=== PATIENT | female | born 1955 | race Caucasian/White ===

== ENCOUNTER → 2020-06-04 | Outpatient (CLI) | payer MEDICARE, OTHER ==
--- NOTE | 2020-06-04 17:17 | KCIC ---
LUMBAR SPINE WO CONTRAST Date: 06/04/2020 2:45 PM Indication: LUMBAR RADICULOPATHY. Progressing lower back pain into BLE, R>L. Comparison: None. Technique: Multi-planar multi-weighted magnetic resonance imaging of the lumbar spine was performed without intravenous contrast using the standard lumbar spine protocol. FINDINGS: Transitional anatomy at the lumbosacral junction with the inferior most squared vertebral body designated a partially sacralized L5 vertebra with left pseudoarthrosis. Trace retrolisthesis at L1-2 and L2-3. 11 mm anterolisthesis at L4-5. No acute fracture. Moderate multilevel degenerative disc desiccation and disc height loss. Degenerative endplate edema at L4-5. The conus terminates at a normal level. No abnormal signal is seen within the visualized distal spinal cord. No clumping of intrathecal nerve roots. Right psoas atrophy. T10-11: Disc bulge. Mild facet arthropathy. Ligamentum flavum thickening. Mild spinal canal stenosis. No neural foraminal narrowing. T11-12: Disc bulge. Moderate facet arthropathy. Ligamentum flavum thickening. Moderate spinal canal stenosis. No neural foraminal narrowing. T12-L1: Disc bulge. Moderate facet arthropathy. Mild spinal stenosis. Mild bilateral neural foraminal narrowing. L1-L2: Disc bulge. Severe facet arthropathy. Ligamentum flavum thickening. Mild to moderate spinal stenosis. Mild bilateral neural foraminal narrowing. L2-L3: Disc bulge. Severe facet arthropathy. Ligamentum flavum thickening. Mild spinal stenosis. Mild to moderate bilateral neural foraminal narrowing. L3-L4: Disc bulge. Severe facet arthropathy. Ligamentum flavum thickening. Severe spinal stenosis and lateral recess narrowing. Mild to moderate bilateral neural foraminal narrowing. L4: Large amount of extruded disc material extending from the L3-4 to the L4-5 disc space, unclear which level this originated from. L4-L5: Anterolisthesis with uncovering of the disc. Disc bulge. Severe facet arthropathy. Severe spinal stenosis and lateral recess narrowing. Severe bilateral neural foraminal narrowing. L5-S1: No disc bulge. Mild facet arthropathy. No significant spinal stenosis or neural foraminal narrowing. IMPRESSION: 1. Transitional anatomy at the lumbosacral junction, as detailed above. 2. Severe spinal canal stenosis at L3-4 and L4-5. Large amount of extruded disc material extending between these levels, unclear as to which level it originated from. Advanced degenerative changes otherwise detailed level by level above. 3. Grade 2 anterolisthesis at L4-5, possibly due to severe facet arthropathy. Electronically signed by: Parish Sumner MD (06/04/2020 5:14 PM) [id number]
== END | disposition home or self-care (01) ==
LOC: KCIC MRI 13:56
PROVIDERS: ATTEND Family Medicine
DX: M51.16 Intervertebral disc disorders with radiculopathy, lumbar region (principal); M47.25 Other spondylosis with radiculopathy, thoracolumbar region; M47.27 Other spondylosis with radiculopathy, lumbosacral region; M84.48XA Pathological fracture, other site, initial encounter for fracture; M48.05 Spinal stenosis, thoracolumbar region
CPT/HCPCS: 72148

== ENCOUNTER → 2021-07-08 | Outpatient (CLI) | payer MEDICARE ==
--- NOTE | 2021-07-08 16:01 | KCIC ---
XR EXAM OF ANKLE_LEFT 3V, XR FOOT_LEFT 2 VIEWS DATE: 07/08/2021 1:16 PM INDICATION: LEFT ANKLE PAIN S/P RECENT FALL COMPARISON: None. FINDINGS: Bones: There is no evidence of acute fracture or dislocation. Osseous demineralization. Plantar calca yohana enthesophyte. Joints: The ankle mortise is congruent. Severe degenerative changes of the ankle joint and hindfoot. Moderate degenerative changes of the midfoot and first MTP joint. Miscellaneous: Atherosclerotic vascular calcifications. IMPRESSION: No evidence of acute ankle or foot fracture. Electronically signed by: Parish Sumner MD (07/08/2021 3:58 PM) [id number]
--- NOTE | 2021-07-08 16:01 | KCIC ---
XR KNEE_LT 1-2 VIEWS DATE: 07/08/2021 1:16 PM INDICATION: LEFT KNEE PAIN S/P RECENT FALL COMPARISON: None. FINDINGS: Bones: There is no evidence of acute fracture or dislocation. Joints: Severe tricompartmental degenerative changes. There is no joint effusion. Miscellaneous: None. IMPRESSION: No acute fracture. Electronically signed by: Parish Sumner MD (07/08/2021 3:59 PM) [id number]
== END ==
LOC: KCIC 13:11
PROVIDERS: ATTEND Family Medicine
DX: M17.12 Unilateral primary osteoarthritis, left knee (principal); M19.072 Primary osteoarthritis, left ankle and foot; M25.775 Osteophyte, left foot; I70.90 Unspecified atherosclerosis; M25.562 Pain in left knee; M79.672 Pain in left foot
CPT/HCPCS: 73560; 73610; 73620